=== PATIENT | female | born 1940 | race Caucasian/White ===

== ENCOUNTER 2019-01-12 09:44 | Observation (INO) ==
[2019-01-12 11:44] LABS: Basophils # 0.1 10*3/uL (0.0-0.2); Eosinophils # 0.3 10*3/uL (0.0-0.87); Eosinophils % 4.1 % (0.00-10.9); Hematocrit 38.8 VOL% (35.7-47.0); Hemoglobin 12.7 GM/DL (12.0-16.0); Immature Granulocytes % 0.5 %; Immature Granulocytes Absolute 0.04 #; Lymphocytes # 1.3 10*3/uL (1.4-4.0); Lymphocytes % 16.2 % (21.3-54.2); Mean Corpuscular HGB Conc 32.7 GM/DL (32-36); Mean Corpuscular Volume 93.3 FL (87-102); Mean Platelet Volume 10.3 FL (9.6-12.0); Monocytes % 7.4 % (1.7-12.7); Neutrophils % 70.8 % (38.7-73.9); Platelet Count 198 T/CUMM (130-400); Red Blood Count 4.16 MC/CUMM (3.8-5.5); Red Cell Distribution Width 16.5 % (9.3-17.3); White Blood Count 7.8 T/CUMM (4-12)
[2019-01-12 12:13] LABS: Alanine Aminotransferase 21 U/L (13-56); Albumin 3.8 G/DL (3.4-5.0); Alkaline Phosphatase 56 U/L (45-117); Aspartate Amino Transferase 16 U/L (0-37); Bilirubin,Total < 0.39 MG/DL (0.2-1.0); Blood Urea Nitrogen 24 MG/DL (7-18); Calcium 9.5 MG/DL (8.5-10.1); Estimated Glom Filtration Rate 51 ML/MIN; Glucose 147 MG/DL (74-106); Osmolality,Calculated 289.1 MOS/KG (273-304); Total Protein 7.5 G/DL (6.4-8.3)
[2019-01-12] MEDS ORDERED: SODIUM CHLORIDE 0.9% 1,000 ML IV STA ×2 (12:17→12:30)
[2019-01-12] MEDS ORDERED: PIPERACILLIN/TAZOBACTAM 3,375 MG in SODIUM CHLORIDE 0.9% 100 ML IV STA (12:30)
[2019-01-12] MEDS ORDERED: ONDANSETRON 4 MG/2 ML VIAL IV PRN (12:43)
[2019-01-12] MEDS ORDERED: PROMETHAZINE 25 MG/1 ML VIAL IM PRN (12:43)
[2019-01-12] MEDS ORDERED: GLUCAGON 1 MG VIAL IM PRN (12:43)
[2019-01-12] MEDS ORDERED: DEXTROSE 50% 25 GM/50 ML VIAL IV PRN (12:43)
[2019-01-12] MEDS ORDERED: traMADol 50 MG TABLET PO PRN (15:36)
[2019-01-12] MEDS ORDERED: INFLUENZA VIRUS VACCINE 0.5 ML SYRINGE IM ONE (15:47)
[2019-01-12] MEDS ORDERED: METHOTREXATE 2.5 MG TABLET PO SCH (16:00)
[2019-01-12] MEDS: INSULIN REGULAR 100 UNIT/ML SUBCUT SCH ×2 (16:11→21:13)
[2019-01-12] MEDS: SODIUM CHLORIDE 0.9% 1,000 ML IV SCH (16:59)
[2019-01-12] MEDS: ITRACONAZOLE 100 MG CAPSULE PO SCH (17:00)
[2019-01-12] MEDS: cefTRIAXone 2,000 MG in SYRINGE 1 EACH IV SCH (17:01)
[2019-01-12] MEDS ORDERED: SIMVASTATIN 20 MG TABLET PO SCH (21:00)
[2019-01-12] MEDS ORDERED: AMITRIPTYLINE 25 MG TABLET PO SCH (21:00)
[2019-01-12] MEDS ORDERED: ENOXAPARIN 40 MG/0.4 ML SYRINGE SUBCUT SCH (21:00)
[2019-01-12] MEDS: glipiZIDE 10 MG TABLET PO SCH (21:13)
[2019-01-12] MEDS: LISINOPRIL 20 MG TABLET PO SCH (21:14)
[2019-01-12] MEDS: PREGABALIN 75 MG CAPSULE PO SCH (21:14)
[2019-01-12] MEDS: amLODIPine 5 MG TABLET PO SCH (21:14)
[2019-01-13 04:19] LABS: Basophils # 0.1 10*3/uL (0.0-0.2); Eosinophils # 0.3 10*3/uL (0.0-0.87); Eosinophils % 3.7 % (0.00-10.9); Hematocrit 31.2 VOL% (35.7-47.0); Hemoglobin 10.2 GM/DL (12.0-16.0); Immature Granulocytes % 0.4 %; Immature Granulocytes Absolute 0.03 #; Lymphocytes # 1.7 10*3/uL (1.4-4.0); Lymphocytes % 25.8 % (21.3-54.2); Mean Corpuscular HGB Conc 32.7 GM/DL (32-36); Mean Corpuscular Volume 94.5 FL (87-102); Mean Platelet Volume 9.9 FL (9.6-12.0); Monocytes % 9.9 % (1.7-12.7); Neutrophils % 59.2 % (38.7-73.9); Platelet Count 174 T/CUMM (130-400); Red Cell Distribution Width 16.5 % (9.3-17.3); White Blood Count 6.7 T/CUMM (4-12)
[2019-01-13 04:55] LABS: Alanine Aminotransferase 16 U/L (13-56); Albumin 2.7 G/DL (3.4-5.0); Alkaline Phosphatase 43 U/L (45-117); Aspartate Amino Transferase 12 U/L (0-37); Bilirubin,Total < 0.39 MG/DL (0.2-1.0); Blood Urea Nitrogen 21 MG/DL (7-18); Calcium 8.1 MG/DL (8.5-10.1); Estimated Glom Filtration Rate 75 ML/MIN; Glucose 79 MG/DL (74-106); HDL Cholesterol 30 MG/DL (40-60); Risk Ratio 3.77; Total Protein 5.5 G/DL (6.4-8.3); Triglycerides 203 MG/DL (2-150); VLDL CHOLESTEROL 40.6 MG/DL
[2019-01-13] MEDS: SODIUM CHLORIDE 0.9% 1,000 ML IV SCH (05:45)
[2019-01-13] MEDS ORDERED: MAGNESIUM SULF RIDER 2 GM in PREMIX 1 EACH IV ONE (07:32)
[2019-01-13] MEDS: INSULIN REGULAR 100 UNIT/ML SUBCUT SCH ×3 (08:58→16:07)
[2019-01-13] MEDS: LISINOPRIL 20 MG TABLET PO SCH (08:58)
[2019-01-13] MEDS: glipiZIDE 10 MG TABLET PO SCH (08:59)
[2019-01-13] MEDS: PREGABALIN 75 MG CAPSULE PO SCH ×2 (08:59→15:59)
[2019-01-13] MEDS ORDERED: FOLIC ACID 1 MG TABLET PO SCH (09:00)
[2019-01-13] MEDS: amLODIPine 5 MG TABLET PO SCH (09:00)
[2019-01-13] MEDS ORDERED: PANTOPRAZOLE 40 MG TABLET PO SCH (09:00)
[2019-01-13] MEDS ORDERED: INSULIN GLARGINE 100 UNIT/ML SUBCUT SCH (09:00)
[2019-01-13] MEDS ORDERED: FUROSEMIDE 20 MG TABLET PO SCH (09:00)
[2019-01-13] MEDS ORDERED: POTASSIUM CHLORIDE 10 MEQ TABLET PO SCH (09:00)
[2019-01-13] MEDS ORDERED: ASPIRIN EC 81 MG TABLET PO SCH (09:00)
[2019-01-13] MEDS ORDERED: FUROSEMIDE 40 MG/4 ML VIAL IV ONE (09:28)
[2019-01-13] MEDS: cefTRIAXone 2,000 MG in SYRINGE 1 EACH IV SCH (09:37)
[2019-01-13] MEDS: ITRACONAZOLE 100 MG CAPSULE PO SCH (09:55)
[2019-01-13] MEDS ORDERED: FUROSEMIDE 40 MG/4 ML VIAL ONE (10:21)
[2019-01-13 15:58] VITALS: BP 125/63
== END 2019-01-13 18:56 | disposition home or self-care (01) ==
LOC: N.EDINP 09:44 → N.ED 09:44 → N.2E 15:23
PROVIDERS: ADMIT Internal Medicine; ATTEND Internal Medicine